=== PATIENT | female | born 1990 | race Caucasian/White ===

== ENCOUNTER → 2017-09-04 | Outpatient (CLI) | payer BC | LOC: M RAD 14:17 | DX: Z34.80 Encounter for supervision of other normal pregnancy, unspecified trimester (principal) ==

== ENCOUNTER → 2017-10-27 | Outpatient (CLI) | payer BC ==
[2017-10-27 13:30] LABS: HEMATOCRIT 37.1 % (36.0-47.0); HEMOGLOBIN 12.1 g/dl (12.0-15.5); MEAN CORPUSCULAR HEMOGLOBIN 31.3 pg (27.0-33.0); MEAN CORPUSCULAR HGB CONC 32.6 g/dl (32.0-36.5); MEAN CORPUSCULAR VOLUME 96.1 fl (80.0-96.0); PLATELET COUNT, AUTOMATED 182 10^3/uL (150-450); RED BLOOD COUNT 3.86 10^6/uL (4.00-5.40); RED CELL DISTRIBUTION WIDTH 12.8 % (11.5-14.5)
== END ==
LOC: M SMT 09:02
DX: Z34.82 Encounter for supervision of other normal pregnancy, second trimester (principal); Z36.89 Encounter for other specified antenatal screening
CPT/HCPCS: 85027

== ENCOUNTER → 2017-11-17 | Outpatient (REF) | payer BC | LOC: M LAB REF 13:32 | DX: Z34.82 Encounter for supervision of other normal pregnancy, second trimester (principal) | CPT/HCPCS: 87086 ==

== ENCOUNTER → 2018-01-08 | Outpatient (REF) | payer BC | LOC: M LAB REF 13:09 | DX: Z34.83 Encounter for supervision of other normal pregnancy, third trimester (principal) | CPT/HCPCS: 87081 ==

== ENCOUNTER 2018-01-28 05:21 | Inpatient (IN) | payer BC ==
[2018-01-28 06:08] LABS: HEMATOCRIT 39.5 % (36.0-47.0); HEMOGLOBIN 13.4 g/dl (12.0-15.5); MEAN CORPUSCULAR HEMOGLOBIN 31.3 pg (27.0-33.0); MEAN CORPUSCULAR HGB CONC 33.9 g/dl (32.0-36.5); MEAN CORPUSCULAR VOLUME 92.3 fl (80.0-96.0); PLATELET COUNT, AUTOMATED 182 10^3/uL (150-450); RED BLOOD COUNT 4.28 10^6/uL (4.00-5.40); WHITE BLOOD COUNT 8.9 10^3/uL (4.0-10.0)
[2018-01-28] MEDS ORDERED: ceFAZolin 2 GM/D5W 50 ML IV BAG (J0690 PER 500MG) As Ordered (06:39)
[2018-01-28] MEDS ORDERED: BICITRA 30ML SOLN UDC As Ordered (06:39)
[2018-01-28] MEDS: LR 1,000 ML IV ×4 (06:45→17:18)
[2018-01-28] MEDS ORDERED: LR 1,000 ML IV (06:45)
[2018-01-28] MEDS ORDERED: ONDANSETRON 4MG/2ML VIAL (J2405) As Ordered (07:09)
[2018-01-28] MEDS ORDERED: OXYTOCIN INJ 10 UNITS/ML VIAL (J2590) As Ordered ×2 (07:09→08:20)
[2018-01-28] MEDS ORDERED: fentaNYL 100 MCG/2 ML INJECTION (J3010) As Ordered (07:09)
[2018-01-28] MEDS ORDERED: dexameTHASONE 4 MG/ML 1ML VIAL (J1100) As Ordered (07:09)
[2018-01-28] MEDS ORDERED: MORPHINE PRES-FREE INJ 10 MG/10 ML VIAL (J2274) As Ordered (07:09)
[2018-01-28] MEDS ORDERED: BUPIVACAINE/DEXTROSE 0.75% 2 ML AMP As Ordered (07:09)
[2018-01-28] MEDS ORDERED: KETOROLAC 60 MG/2 ML VIAL (J1885) As Ordered (07:09)
[2018-01-28] MEDS: BICITRA 30ML SOLN UDC PO (07:31)
[2018-01-28] MEDS ORDERED: NALBUPHINE HCL 10 MG/ML AMP (J2300) IV (07:42)
[2018-01-28] MEDS ORDERED: ONDANSETRON 4MG/2ML VIAL (J2405) IV ×3 (07:42→09:30)
[2018-01-28] MEDS ORDERED: NALOXONE INJ 0.4 MG/1 ML VIAL (J2310) IV ×2 (07:42)
[2018-01-28] MEDS ORDERED: ePHEDrine SULFATE 25 MG/5 ML(5MG/ML) SYRINGE As Ordered ×2 (08:11)
[2018-01-28 09:15] LABS: HBSAG L&D NEGATIVE (NEGATIVE)
[2018-01-28] MEDS ORDERED: METOCLOPRAMIDE INJ 10MG/2ML VIAL (J2765) IV (09:15)
[2018-01-28] MEDS ORDERED: fentaNYL 100 MCG/2 ML INJECTION (J3010) IV (09:15)
[2018-01-28] MEDS ORDERED: PERCOCET 5MG/325MG TAB PO ×2 (09:15→09:30)
[2018-01-28] MEDS ORDERED: MEASLES,MUMPS,RUBELLA VACCINE INJ (MMR-II) (90707) SC (09:30)
[2018-01-28] MEDS ORDERED: RHOGAM 300 MCG (1500 IU) INJ (J2790) IM (09:30)
[2018-01-28] MEDS ORDERED: PROMETHAZINE 25 MG TAB PO (09:30)
[2018-01-28] MEDS ORDERED: OXYTOCIN 30 UNITS IN 0.9% NaCl 500ML IV BAG (J2590) As Ordered (09:35)
[2018-01-28] MEDS: OXYTOCIN DRIP 30 UNITS in APPROPRIATE DILUENT 1 EA IV (10:37)
[2018-01-28] MEDS: METOCLOPRAMIDE INJ 10MG/2ML VIAL (J2765) IV (10:50)
[2018-01-28] MEDS: KETOROLAC 30 MG/ML VIAL (J1885) IV ×2 (14:50→20:55)
[2018-01-28] MEDS: DOCUSATE SODIUM 100 MG CAP PO (20:55)
[2018-01-29] MEDS: LR 1,000 ML IV ×2 (01:18→09:18)
[2018-01-29] MEDS: KETOROLAC 30 MG/ML VIAL (J1885) IV (02:09)
[2018-01-29 07:17] LABS: HEMATOCRIT 32.1 % (36.0-47.0); MEAN CORPUSCULAR HEMOGLOBIN 31.1 pg (27.0-33.0); MEAN CORPUSCULAR VOLUME 94.1 fl (80.0-96.0); PLATELET COUNT, AUTOMATED 134 10^3/uL (150-450); RED BLOOD COUNT 3.41 10^6/uL (4.00-5.40); RED CELL DISTRIBUTION WIDTH 12.7 % (11.5-14.5); WHITE BLOOD COUNT 9.5 10^3/uL (4.0-10.0)
[2018-01-29 07:21] LABS: HEMOGLOBIN 10.6 g/dl (12.0-15.5)
[2018-01-29] MEDS: DOCUSATE SODIUM 100 MG CAP PO ×2 (09:38→19:39)
[2018-01-29] MEDS: PRENATAL VITAMINS CHEWABLE TABLET PO (09:39)
[2018-01-29] MEDS: IBUPROFEN 800 MG TAB PO ×2 (09:39→17:24)
[2018-01-29] MEDS: PERCOCET 5MG/325MG TAB PO (22:11)
[2018-01-30] MEDS: IBUPROFEN 800 MG TAB PO ×2 (02:03→10:50)
[2018-01-30] MEDS: DOCUSATE SODIUM 100 MG CAP PO (07:49)
[2018-01-30] MEDS: PRENATAL VITAMINS CHEWABLE TABLET PO (07:49)
== END 2018-01-30 11:15 | disposition home or self-care (01) | DRG 0 ==
LOC: M LDI 05:21 → M OBS 10:42
PROC: 10D00Z1 Extraction of Products of Conception, Low, Open Approach (ICD-10-PCS; principal; 2018-01-28 07:30)
PROC: 0UB70ZZ Excision of Bilateral Fallopian Tubes, Open Approach (ICD-10-PCS; 2018-01-28 07:30)
DX: O34.211 Maternal care for low transverse scar from previous cesarean delivery (principal); Z3A.39 39 weeks gestation of pregnancy; Z30.2 Encounter for sterilization; Z37.0 Single live birth